=== PATIENT | male | born 1950 | race Caucasian/White ===

== ENCOUNTER → 2016-08-10 | Outpatient (CLI) | payer MEDICARE ==
[~2016-08-10] MED LIST: ALPHA LIPOIC100 MG PO; AMARYL 2MG TABLE2 MG PO; AMLODIPINE10 M2 PO; ATORVASTATIN CA20 MG PO; BISOPROLOL 5MG T5 MG PO; BYSTOLIC5 MG PO; CHEWABLE ASPIRI81 MG PO; CIPRO 500MG TA500 MG PO; CONSTULOSE10 GM/15 M PO; DIOVAN HCT 25 M1 TA1 PO; DIOVAN320 MG PO; FELODIPINE5 MG PO; FLEXERIL10 MG PO; IMDUR120 MG PO; KLOR-CON M2020 MEQ PO; LOSARTAN POTASS1 TAB PO; METFORMIN500 MG PO; NORCO 325 MG-51 TAB PO; OMEPRAZOLE D/R20 MG PO; TESSALON PERLE100 M1 PO; TORSEMIDE 20MG20 MG PO; ULTRAM50 MG PO; VICODIN 5/6 EACH/PAK OR; VITAMIN E 400400 IU PO; WELCHOL625 MG PO; XIFAXAN550 MG PO; ZOCOR80 MG PO
--- NOTE | 2016-08-10 12:02 | RADIOLOGY REPORT PS360 ---
CHEST(2 VIEWS-NOT PORTABLE) ORDERING PHYSICIAN : Antonio Lewis MD PATIENT AGE: 65 years GENDER: Male INDICATION: PLEURISY RT, COPD, SOA TECHNIQUE: PA and lateral chest COMPARISON: 07/27/2016 CXR FINDINGS --- The lungs are hyperexpanded but clear with no active disease. Mild elevation right hemidiaphragm. Heart is normal in size with kun and mediastinal structures unremarkable. Mild apical pleural scarring bilateral. No pleural effusion. Hypertrophic changes throughout the T-spine again noted stable. Chest wall unchanged. IMPRESSION: Stable chest,. Nothing definitely acute
== END ==
LOC: RAD 10:14
DX: R09.1 Pleurisy (principal); J44.9 Chronic obstructive pulmonary disease, unspecified; R06.02 Shortness of breath

== ENCOUNTER → 2017-04-29 | Outpatient (CLI) | payer MEDICARE ==
--- NOTE | 2017-04-29 12:18 | RADIOLOGY REPORT PS360 ---
[id number] VIEWS HISTORY: S/P FALL 7-1, LT SHOULDER PAINinjury Patient Age: 66 years: Male Ordering Physician: Antonio Lewis MD TECHNIQUE: 3 views left shoulder COMPARISON :No shoulder studies but there is a chest film from February 25, 2017 and August 2016 which partially imaged and include left shoulder. FINDINGS No fracture nor dislocation. No acute appearing findings radiographically. There are degenerative changes at the AC joint. Suggestion mild spurring and hypertrophy along inferior margin inferior margin acromion which appears to be similar to the previous chest film January 2017. Perhaps slight narrowing at this subacromial space which could reflect impingement anatomy if impingement symptoms present. The humeral head and neck are intact. Glenoid appears intact. The upper most left ribs and chest included on this image appear intact. IMPRESSION: No fracture nor dislocation. No acute osseous findings The glenohumeral joint intact. Moderate Degenerative changes left AC joint again noted-appear similar to previous CXR from earlier this year. Suggestion slight narrowing subacromial space with minor spurring from the inferior acromion which could contribute to impingement symptoms if present
== END ==
LOC: RAD 11:38
DX: M25.512 Pain in left shoulder (principal)